=== PATIENT | male | born 1940 | race Two or more races ===

== ENCOUNTER 2018-05-13 19:18 | Inpatient (IN) | payer MEDICARE ==
[~2018-05-13] VITALS: Ht 175.3 cm; Wt 77.6 kg
[2018-05-13 10:55] VITALS: BP 128/56
--- NOTE | 2018-05-13 19:29 | NUR ---
bib lafd ra c/c aloc found on sidewalk. pt is aa/ox4 lethargic AND SLOW TO RESPOND. pt states," I haven't had any of my medicine or anything to eat or drink." COMPLAINING OF PAIN TO BUTTOCK AND HIP AREAS. POSITIVE PEDAL PULSES B/L, MOVES ALL EXTREMITIES BUT WEAK. vss, PLACED PT ON PLUGGER AND PULSE OX. no s/s of sob. pupils pinpoint. pt. denies any drug use. awaiting md eval/ orders. WILL CONTINUE TO MONITOR.
--- NOTE | 2018-05-13 19:29 | NUR ---
Note undone in EDM - 05/13/18 at 1940 by CHAYITO kellee sultana ra c[facility]/ox4 lethargic. pt states," I haven't had any of my medicine or anything to eat or drink." COMPLAINING OF PAIN TO BUTTOCK AND HIP AREAS. POSITIVE PEDAL PULSES B/L. vss. no s/s of sob. pupils pinpoint. pt. denies any drug use. awaiting eval/ orders.
--- NOTE | 2018-05-13 19:29 | NUR ---
Note undone in EDM - 05/13/18 at 1935 by CHAYITO kellee sultana ra c/c saw found on sidewalk. pt is aa/ox4 lethargic. pt states," I haven't had any of my medicine or anything to eat or drink." vss. no s/s of sob. pt denies any pain. pupils pinpoint. pt. denies any drug use. awaiting md eval/ orders.
[2018-05-13] MEDS ORDERED: LIDOCAINE 2% JEL UROJET 10 ML MM ONE ×2 (19:44→20:00)
--- NOTE | 2018-05-13 19:45 | NUR ---
LAB AT BEDSIDE FOR BLOOD DRAW.
--- NOTE | 2018-05-13 19:45 | NUR ---
EKG AT BEDSIDE
[2018-05-13] MEDS ORDERED: PANT40TA2 PO (19:55)
[2018-05-13] MEDS ORDERED: CITA20TA19 PO (19:55)
[2018-05-13] MEDS ORDERED: TAMS0.4C34 PO (19:55)
[2018-05-13] MEDS ORDERED: IBUP-1953 PO (19:55)
[2018-05-13] MEDS ORDERED: ACET325C5 PO (19:55)
[2018-05-13] MEDS ORDERED: LISI2.5T2 PO (19:55)
[2018-05-13] MEDS ORDERED: TRAM50TA2 PO (19:55)
[2018-05-13] MEDS ORDERED: MULT-213 PO (19:55)
[2018-05-13] MEDS ORDERED: CLID1CAP PO (19:55)
[2018-05-13] MEDS ORDERED: SENN176S PO (19:55)
[2018-05-13 19:57] LABS: BASOPHILS % (AUTO) 0.5 % (0.0-2.0); EOSINOPHILS % (AUTO) 2.2 % (0.0-6.0); HEMATOCRIT 29 % (39-51); HEMOGLOBIN 10.1 g/dL (13.5-17.5); LYMPHOCYTES # (AUTO) 1.1 /CMM (0.8-4.8); LYMPHOCYTES % (AUTO) 13.3 % (20.0-44.0); MEAN CORPUSCULAR HEMOGLOBIN 30 PG (26.0-33.0); MEAN CORPUSCULAR HGB CONC 35 g/dl (31.0-36.0); MEAN CORPUSCULAR VOLUME 88 fL (80-96); MONOCYTES # (AUTO) 0.6 /CMM (0.1-1.30); MONOCYTES % (AUTO) 6.9 % (2.0-12.0); NEUTROPHILS # (AUTO) 6.6 /CMM (1.8-8.9); NEUTROPHILS % (AUTO) 77.1 % (43.0-81.0); PLATELET COUNT (AUTO) 207 /CMM (150-450); RDW COEFFICIENT OF VARIATION 14.7 (11.5-15.0); RED BLOOD CELL COUNT(AUTO) 3.33 MIL/uL (4.5-6.0); WHITE BLOOD COUNT (AUTO) 8.5 K/uL (4.3-11.0)
[2018-05-13] MEDS ORDERED: CETI-102 PO (19:58)
[2018-05-13] MEDS ORDERED: CARV12.52 PO (19:58)
[2018-05-13] MEDS ORDERED: IV NS 0.9% 500 ML BAG IV ONE (20:00)
[2018-05-13 20:07] LABS: CALCIUM, SERUM 9.8 mg/dL (8.5-10.1); CARBON DIOXIDE 26 mmol/L (21-32); CHLORIDE 100 mmol/L (98-107); CREATININE 2.4 mg/dL (0.6-1.3); GLUCOSE 106 mg/dL (74-106); POTASSIUM 4.2 mmol/L (3.5-5.1); SODIUM SERUM 134 mmol/L (136-145); UREA NITROGEN, BLOOD 36 mg/dL (7-18)
[2018-05-13 20:12] LABS: ALANINE AMINOTRANSFERASE 21 U/L (12-78); ALBUMIN 3.6 g/dL (3.4-5.0); ALCOHOL, BLOOD < 3 mg/dL (0-0); ALKALINE PHOSPHATASE 72 U/L (46-116); ASPARTATE AMINOTRANSFERASE 16 U/L (15-37); BILIRUBIN,DIRECT 0.1 mg/dL (0.0-0.2); BILIRUBIN,TOTAL 0.2 mg/dL (0.2-1.0); TOTAL PROTEIN, SERUM 7.4 g/dL (6.4-8.2)
[2018-05-13 20:15] LABS: TROPONIN I < 0.017 ng/mL (0.00-0.056)
[2018-05-13 20:18] LABS: SERUM AMMONIA 10 umol/L (11-32)
[2018-05-13 20:20] LABS: ACETAMINOPHEN < 2 ug/ml (10-30); SALICYLATE < 2.8 mg/dL (2.8-20.0)
--- NOTE | 2018-05-13 20:26 | NUR ---
pt transported to radiology for ct.
[2018-05-13 20:29] LABS: THYROID STIMULATING HORMONE 1.125 uIU/mL (0.358-3.74)
[2018-05-13] MEDS ORDERED: IV NS 0.9% 1,000 ML BAG IV ONE (20:30)
[2018-05-13 20:39] LABS: INR 0.9 (0.85-1.15)
--- NOTE | 2018-05-13 21:45 | NUR ---
PT ABLE TO VERBALIZE NEEDS. REQUESTED A BLANKET AND PILLOW. STILL UNABLE TO RECALL FALLING EARLIER.
[2018-05-13 22:27] LABS: APPEARANCE,URINE CLEAR (CLEAR); BILIRUBIN,URINE NEGATIVE (NEGATIVE); BLOOD, URINE 1+ Ery/uL (NEGATIVE); COLOR,URINE YELLOW (YELLOW); KETONES,URINE TRACE (NEGATIVE); LEUKOCYTE ESTERASE ,URINE NEGATIVE (NEGATIVE); NITRITE, URINE NEGATIVE (NEGATIVE); PH,URINE 5.5 (5.0-8.0); PROTEIN,URINE TRACE mg/dl (NEGATIVE); UGLUCOSE NEGATIVE (NEGATIVE); UROBILINOGEN,URINE 0.2 EU/dL (0.2)
--- NOTE | 2018-05-13 22:28 | NUR ---
REPORT CALLED TO M/S REBECCA JACKSON. PT WAS SEEN AND EVALUATED BY DR. SNEHA CORBIN.
[2018-05-13 22:41] LABS: BACTERIA,URINE Few /HPF (None Seen); RBC,URINE 21-50 /HPF (0-2)
[2018-05-13 22:42] LABS: SQUAMOUS EPITHELIAL CELL,UR Few /HPF (None Seen)
[2018-05-13 22:55] VITALS: BP 128/56
--- NOTE | 2018-05-13 22:55 | NUR ---
RN MS ADMITTING NOTES RECEIVED PATIENT VIA GURNEY, AWAKE ALERT AND ORIENTED TO X2, NOTED FORGETFUL , ABLE TO FOLLOW SIMPLE COMMANDS AND ANSWER SIMPLE QUESTIONS, RESPIRATIONS EVEN AND UNLABORED WITH EQUAL RISE AND FALL OF CHEST, ON O2 2 LITERS VIA NC O2 SAT AT 92%, DENIES ANY PAIN OR DISCOMFORT AT THIS TIME, BODY ASSESSMENT DONE, NOTED WITH BILATERAL KNEE SKIN TEARS APPEARING SCABS, BLE SKIN DRYNESS, BUE SCATTERED DISCOLORATIONS, AND LEFT FA SCAB, SACRAL ASSESSED NOTED INTACT NO REDNESS. PATIENT ABLE TO SELF REPOSITION SELF WHILE IN BED. IV SITE TO RIGHT HAND #20g INTACT AND PATENT, NO REDNESS , NO INFILTRATION PRESENT, IV SITE TO RIGHT FA #20g INTACT AND PATENT NO REDNESS, NO INFILTRATION PRESENT, BELONGINGS LIST DONE, PLACED 2 LIGHTERS AND METAL NAIL CLIPPER WITH NAME LABEL AT STATIONS CIGARETTE DRAWER AND ONE INHALER FOR PHARM TO FORENSIC CHEMIST WITH RECEIPT IN CHART, ORIENTED TO STAFF AND CALL LIGHT, CALL LIGHT KEPT WITHIN REACH, SAFETY PRECAUTIONS RENDERED, LOW BED, BED LOCKED, SIDERAILS X 3 UP , BED ALARM ON, ALL NEEDS ATTENDED AT THIS TIME, PATIENT REMAINS COMFORTABLE , MD DR. HOOVER AWARE OF ADMISSION AWAITING ORDERS. WILL CONTINUE TO MONITOR.
[2018-05-13] MEDS ORDERED: Z GUARD REMEDY 2 OZ OINT TP PRN (23:00)
[2018-05-13] MEDS ORDERED: MAGNESIUM HYDROXIDE 30 ML UDC PO PRN (23:00)
[2018-05-13] MEDS ORDERED: MAG HYDROX/AL HYDROX/SIMETH 30 ML UDC PO PRN (23:00)
[2018-05-13] MEDS ORDERED: ONDANSETRON HCL/PF 4 MG/2 ML VIAL IVP PRN (23:00)
[2018-05-13] MEDS ORDERED: ZOLPIDEM TARTRATE 5 MG TABLET PO PRN (23:00)
[2018-05-13] MEDS: IV NS 0.9% 1,000 ML IV PRN (23:18)
--- NOTE | 2018-05-14 06:27 | NUR ---
RN MS CLOSING NOTES PATIENT REMAINS IN BED, SLEEPING BUT EASILY AROUSABLE , ALERT AND ORIENTED X 2-3 NOTED FORGETFUL AT TIMES WITH SLOW RESPONSE. RESPIRATIONS EVEN AND UNLABORED WITH EQUAL RISE AND FALL OF CHEST, ON 02 2L VIA NC. DENIES ANY PAIN OR DISCOMFORT AT SITE, IV SITE TO RIGHT HAND #20g SL AND RIGHT FA #20g INTACT AND PATENT , NO REDNESS, NO INFILTRATION PRESENT, IVF RUNNING ORDERED. URINAL OFFERED AND AT BEDSIDE, SAFETY PRECAUTIONS IN PLACE, CALL LIGHT KEPT WITHIN REACH, BED ALARM ON , LOW BED AND LOCKED, ALL NEEDS ATTENDED WILL CONTINUE TO MONITOR AND ENDORSE TO NEXT SHIFT.
--- NOTE | 2018-05-14 07:05 | NUR ---
MS RN NOTES PATIENT IN BED EYES CLOSED, AROUSABLE , RESPOND TO VERBAL AND TACTILE STIMULI. NO ACUTE DISTRESS NOTED. BREATHING UNLABORED. NO SOB NOTED. DENIED ANY PAIN. IV ACCESS PATENT AND INTACT, NO REDNESS OR SWELLING NOTED. SAFETY MEASURES IN PLACE. CALL LIGHT WITHIN REACH. WILL CONTINUE TO MONITOR ACCORDINGLY.
[2018-05-14 07:14] LABS: BASOPHILS % (AUTO) 0.5 % (0.0-2.0); EOSINOPHILS % (AUTO) 4.2 % (0.0-6.0); HEMATOCRIT 31 % (39-51); HEMOGLOBIN 10.4 g/dL (13.5-17.5); LYMPHOCYTES # (AUTO) 1.8 /CMM (0.8-4.8); LYMPHOCYTES % (AUTO) 28.8 % (20.0-44.0); MEAN CORPUSCULAR HEMOGLOBIN 31 PG (26.0-33.0); MEAN CORPUSCULAR HGB CONC 34 g/dl (31.0-36.0); MEAN CORPUSCULAR VOLUME 91 fL (80-96); MONOCYTES # (AUTO) 0.7 /CMM (0.1-1.30); MONOCYTES % (AUTO) 10.4 % (2.0-12.0); NEUTROPHILS # (AUTO) 3.6 /CMM (1.8-8.9); NEUTROPHILS % (AUTO) 56.1 % (43.0-81.0); PLATELET COUNT (AUTO) 209 /CMM (150-450); RDW COEFFICIENT OF VARIATION 15.7 (11.5-15.0); RED BLOOD CELL COUNT(AUTO) 3.41 MIL/uL (4.5-6.0); WHITE BLOOD COUNT (AUTO) 6.3 K/uL (4.3-11.0)
[2018-05-14 07:22] LABS: CALCIUM, SERUM 9.1 mg/dL (8.5-10.1); CARBON DIOXIDE 28 mmol/L (21-32); CHLORIDE 105 mmol/L (98-107); CREATININE 1.9 mg/dL (0.6-1.3); GLUCOSE 86 mg/dL (74-106); PHOSPHORUS 4.6 mg/dL (2.5-4.9); POTASSIUM 4.2 mmol/L (3.5-5.1); SODIUM SERUM 140 mmol/L (136-145); UREA NITROGEN, BLOOD 29 mg/dL (7-18)
[2018-05-14 07:35] LABS: CHOLESTEROL 188 mg/dL (<200); HDL CHOLESTEROL 74 mg/dL (40-60); LDL 99 mg/dL (0-99); THYROID STIMULATING HORMONE 0.848 uIU/mL (0.358-3.74); TRIGLYCERIDES 81 mg/dL (30-150)
[2018-05-14 07:37] LABS: IRON, SERUM 53 ug/dl (50-175); TOTAL IRON BINDING CAPACITY 328 ug/dl (250-450)
[2018-05-14] MEDS: TAMSULOSIN 0.4 MG CAP.SR.24H PO SCH (08:30)
[2018-05-14] MEDS: CARVEDILOL 12.5 MG TABLET PO SCH ×2 (08:31→16:57)
[2018-05-14 08:53] VITALS: BP 134/72
--- NOTE | 2018-05-14 10:22 | NUR ---
WOUND CARE CONSULT: PT NOT SEEN FOR SKIN ASSESSMENT YET DUE TO PT HAVING PROCEDURE AT THIS TIME. SPOKE WITH NURSING STAFF REGARDING SKIN PROTECTION. CURRENT DIXIE SCORE IS 15. PT IS MOSTLY CONTINENT PER NURSING STAFF. WILL SEE PRN. IN AGREEMENT WITH PLAN OF CARE.
[2018-05-14] MEDS: IV NS 0.9% 1,000 ML IV PRN (12:59)
--- NOTE | 2018-05-14 13:40 | NUR ---
MS RN NOTES SEEN AND EVALUATED BY COLETTE JAY WITH NEW ORDERS MADE, NOTED AND CARRIED OUT.
[2018-05-14 16:00] VITALS: BP 126/68
--- NOTE | 2018-05-14 18:34 | NUR ---
MS RN NOTES PATIENT IN BED EYES CLOSED, AROUSABLE , RESPOND TO VERBAL AND TACTILE STIMULI, VERBALLY RESPONSIVE. NO ACUTE DISTRESS NOTED, BREATHING UNLABORED, NO SOB NOTED. DENIED ANY PAIN, NO FACIAL GRIMACING NOTED. IV ACCESS PATENT AND INTACT, NO REDNESS OR SWELLING NOTED. DUE MEDICATIONS GIVEN, NO ASE NOTED. NEEDS ATTENDED AND ANTICIPATED. HOB ELEVATED. SAFETY MEASURES IN PLACE. CALL LIGHT WITHIN REACH. WILL CONTINUE TO MONITOR ACCORDINGLY. WILL ENDORSE TO NIGHT NURSE FOR CONTINUITY OF CARE.
[2018-05-14 20:00] VITALS: BP 147/66
--- NOTE | 2018-05-14 20:14 | NUR ---
MS/RN PATIENT IS AWAKE AT THIS TIME, WAS SLEEPING EARLIER DURING MY INITIAL ROUND, PATIENT IS AWAKE, ALERT, ORIENTED TO TO NAME, NO C/O PAIN, NO DISTRESS NOTED, CALL LIGHT IN REACH. FALL PRECAUTION, WILL MONITOR.
[2018-05-14] MEDS: CITALOPRAM HYDROBROMIDE 20 MG TABLET PO SCH (22:06)
--- NOTE | 2018-05-14 23:15 | NUR ---
MS/RN PATIENT IS SLEEPING AT THIS TIME, AROUSABLE, APPEAR COMFORTABLE, NO SIGNS OF DISTRESS NOTED, CALL LIGHT IN REACH, WILL CONTINUE TO MONITOR.
[2018-05-15] MEDS: IV NS 0.9% 1,000 ML IV PRN ×2 (02:49→16:18)
--- NOTE | 2018-05-15 06:18 | NUR ---
MS/RN PATIENT IS SLEEPING, EASILY AROUSABLE APPEAR COMFORTABLE, NO SIGNS OF DISTRESS NOTED, CALL LIGHT IN REACH. ALL NEEDS ATTENDED AT THIS TIME. WILL CONTINUE TO MONITOR.
--- NOTE | 2018-05-15 06:20 | NUR ---
MS/RN PATIENT REFUSED MORNING CARE, BED CHANGE PER LOAN REVIEW OFFICER.
--- NOTE | 2018-05-15 07:32 | NUR ---
MS RN NOTES PATIENT RESTING INSIDE ROOM. AWAKE, ALERT AND ORIENTED TO SELF. VERBALLY RESPONSIVE AND RESPONDS TO VERBAL AND TACTILE STIMULI. BREATHING EVEN AND UNLABORED. NO SOB OR ACUTE DISTRESS NOTED. PATIENT DENIES ANY PAIN OR DISCOMFORT. IV SITE INTACT AND PATENT. SAFETY PRECAUTIONS IN PLACE. BED ALARM ON. BILATERAL SIDE RAILS UP AND LOCKED. WILL CONTINUE TO MONITOR. BED LOCKED AND IN LOW POSITION. CALL LIGHT WITHIN EASY REACH
[2018-05-15 07:38] LABS: CALCIUM, SERUM 8.8 mg/dL (8.5-10.1); CARBON DIOXIDE 25 mmol/L (21-32); CHLORIDE 104 mmol/L (98-107); CREATININE 1.5 mg/dL (0.6-1.3); GLUCOSE 88 mg/dL (74-106); POTASSIUM 4.3 mmol/L (3.5-5.1); SODIUM SERUM 139 mmol/L (136-145); UREA NITROGEN, BLOOD 20 mg/dL (7-18)
[2018-05-15 08:00] VITALS: BP 160/80
[2018-05-15] MEDS: TAMSULOSIN 0.4 MG CAP.SR.24H PO SCH (08:18)
[2018-05-15] MEDS: CARVEDILOL 12.5 MG TABLET PO SCH ×2 (08:19→16:17)
[2018-05-15] MEDS: ACETAMINOPHEN 325 MG TABLET PO PRN (14:42)
[2018-05-15 16:00] VITALS: BP 158/74
[2018-05-15] MEDS: HYDROCODONE/APAP 5/325MG 1 EACH TABLET PO PRN (16:17)
--- NOTE | 2018-05-15 18:28 | NUR ---
MS RN NOTES PATIENT RESTING INSIDE ROOM. AWAKE, ALERT AND ORIENTED X 2. VERBALLY RESPONSIVE AND RESPONDS TO VERBAL AND TACTILE STIMULI. BREATHING EVEN AND UNLABORED. NO SOB OR ACUTE DISTRESS NOTED. NO CHANGES IN LOC NOTED AT THIS TIME. PATIENT CALM AND RELAXED. IV SITE INTACT AND PATENT. NO SWELLING NOTED ON SITE. WILL ENDORSE TO INCOMING SHIFT FOR SAHTYA. BED LOCKED AND IN LOW POSITION. BILATERAL UPPER SIDE RAILS UP AND LOCKED. CALL LIGHT WITHIN EASY REACH
--- NOTE | 2018-05-15 19:30 | NUR ---
RM INITIAL NOTES: Received patient on bed, asleep, easily arousable. Breathing even and unlabored. No SOB or no acute distress noted. Peripheral IV on RFA g#20 infusing NS @ 75mL/hr. Call levin within reach. Bed in low locked position. Patient stable as endorsed by the morning shift RN.
[2018-05-15 20:00] VITALS: BP 147/74
[2018-05-15] MEDS: CITALOPRAM HYDROBROMIDE 20 MG TABLET PO SCH (21:34)
[2018-05-16] MEDS: IV NS 0.9% 1,000 ML IV PRN (05:09)
--- NOTE | 2018-05-16 06:56 | NUR ---
MS RN CLOSING NOTES PATIENT SLEEPING BUT EASILY AROUSABLE. AWAKE, ALERT AND ORIENTED TO SELF. VERBALLY RESPONSIVE. BREATHING EVEN AND UNLABORED. NO SOB OR ACUTE DISTRESS NOTED. PATIENT DENIES ANY PAIN OR DISCOMFORT. IV SITE INTACT AND PATENT. ALL NEEDS ATTENDED TO. ALL DUE MEDICATIONS GIVEN ORDERED. SAFETY PRECAUTIONS IN PLACE. BED ALARM ON. BILATERAL SIDE RAILS UP AND LOCKED. BED LOCKED AND IN LOW POSITION. CALL LIGHT WITHIN EASY REACH. WILL ENDORSE SATHYA TO MORNING SHIFT RN.
--- NOTE | 2018-05-16 07:10 | NUR ---
RN OPENING NOTES RECEIVED PT. IN BED AWAKE, A&OX3. BREATHING UNLABORED, AND EVENLY ON ROOM AIR. NO S/S OF ACUTE DISTRESS. PT.C/O HEADACHE, MEDICATION WAS OFFERED. IV FLUIDS RUNNING AT 75 ML/HR. BED IS IN LOWEST, AND LOCKED POSITION. 2 SIDE RAILS UP, AND INSTRUCTED PT.TO USE CALL LIGHT WITHIN REACH FOR ASSISTANCE. ALL NEEDS MET. WILL CONTINUE TO ASSESS AND MONITOR.
[2018-05-16 08:00] VITALS: BP 143/77
[2018-05-16] MEDS: TAMSULOSIN 0.4 MG CAP.SR.24H PO SCH (08:30)
[2018-05-16] MEDS: CARVEDILOL 12.5 MG TABLET PO SCH ×2 (08:31→16:40)
[2018-05-16] MEDS: ACETAMINOPHEN 325 MG TABLET PO PRN (08:31)
[2018-05-16] MEDS ORDERED: ENOXAPARIN SODIUM 40 MG/0.4 ML DISP.SYRIN SQ ONE (10:30)
[2018-05-16] MEDS: NEOMY SULF/BACITRAC ZN/POLY 15 GM TUBE TP SCH (15:30)
[2018-05-16] MEDS: HYDROCODONE/APAP 5/325MG 1 EACH TABLET PO PRN ×2 (15:36→23:50)
[2018-05-16 16:14] VITALS: BP 139/83
--- NOTE | 2018-05-16 18:10 | NUR ---
NEOSPORIN OINTMENT UNAVAILABLE IN MEDICATION ROOM. WILL NOTIFY PHARMACY ABOUT ORDER.
--- NOTE | 2018-05-16 18:55 | NUR ---
RN CLOSING NOTES PT. IS IN BED AWAKE, A&OX3. BREATHING UNLABORED, AND EVENLY ON ROOM AIR. NO S/S OF ACUTE DISTRESS. IV FLUIDS RUNNING AT 75 ML/HR. BED IS IN LOWEST, AND LOCKED POSITION. 2 SIDE RAILS UP, AND INSTRUCTED PT.TO USE CALL LIGHT WITHIN REACH FOR ASSISTANCE. ALL NEEDS MET. WILL ENDORSE REPORT TO NURSE.
--- NOTE | 2018-05-16 19:25 | NUR ---
RN INITIAL NOTES: Received patient on bed, alert, oriented x 1-2. Breathing even and unlabored. No SOB or no acute distress noted. Peripheral IV on RFA g#20 infusing NS @ 75mL/hr. Call levin within reach. Bed in low locked position. Patient stable as endorsed by the morning shift RN.
[2018-05-16 20:05] VITALS: BP 172/76
[2018-05-16] MEDS: CITALOPRAM HYDROBROMIDE 20 MG TABLET PO SCH (21:43)
--- NOTE | 2018-05-16 23:50 | NUR ---
RN NOTES: Patient woke up complaining of a splitting headache. Per patient," it's so painful that it woke me up". Offered tylenol but stated that it doesn't work. Requested for norco, given as ordered.
[2018-05-17] VITALS: BP 157/87
[2018-05-17 00:10] VITALS: BP 157/87
[2018-05-17] MEDS: IV NS 0.9% 1,000 ML IV PRN (01:36)
--- NOTE | 2018-05-17 06:04 | NUR ---
RN CLOSING NOTES: Patient in bed, alert, riented x 2. Breathing even and unlabored. No SOB or no acute distress noted. Peripheral IV on RFA g#20 infusing NS @ 75mL/hr. All needs attended to. All due medications given as ordered. Call levin within reach. Bed in low locked position. Will endorse SATHYA to morning shift RN
--- NOTE | 2018-05-17 07:10 | NUR ---
RN OPENING NOTES RECEIVED PT. IN BED SLEEPING. BREATHING UNLABORED, AND EVENLY ON ROOM AIR. NO S/S OF ACUTE DISTRESS. PT.C/O HEADACHE PER NURSE REPORT, AND RECEIVED PAIN MEDICATION. IV FLUIDS RUNNING AT 75 ML/HR. BED IS IN LOWEST, AND LOCKED POSITION. 2 SIDE RAILS UP, AND CALL LIGHT WITHIN REACH. ALL NEEDS MET. WILL CONTINUE TO ASSESS AND MONITOR.
[2018-05-17 08:00] VITALS: BP 153/77
[2018-05-17 08:01] LABS: BASOPHILS # (AUTO) 0.1 /CMM (0.0-0.2); BASOPHILS % (AUTO) 0.8 % (0.0-2.0); EOSINOPHILS % (AUTO) 3.8 % (0.0-6.0); HEMATOCRIT 30 % (39-51); HEMOGLOBIN 9.7 g/dL (13.5-17.5); LYMPHOCYTES # (AUTO) 1.5 /CMM (0.8-4.8); LYMPHOCYTES % (AUTO) 21.9 % (20.0-44.0); MEAN CORPUSCULAR HEMOGLOBIN 29 PG (26.0-33.0); MEAN CORPUSCULAR HGB CONC 33 g/dl (31.0-36.0); MEAN CORPUSCULAR VOLUME 90 fL (80-96); MONOCYTES # (AUTO) 0.7 /CMM (0.1-1.30); MONOCYTES % (AUTO) 10.6 % (2.0-12.0); NEUTROPHILS # (AUTO) 4.2 /CMM (1.8-8.9); NEUTROPHILS % (AUTO) 62.9 % (43.0-81.0); PLATELET COUNT (AUTO) 192 /CMM (150-450); RDW COEFFICIENT OF VARIATION 15.1 (11.5-15.0); WHITE BLOOD COUNT (AUTO) 6.7 K/uL (4.3-11.0)
[2018-05-17 08:06] LABS: CALCIUM, SERUM 8.8 mg/dL (8.5-10.1); CARBON DIOXIDE 26 mmol/L (21-32); CHLORIDE 107 mmol/L (98-107); CREATININE 1.3 mg/dL (0.6-1.3); GLUCOSE 87 mg/dL (74-106); POTASSIUM 4.2 mmol/L (3.5-5.1); SODIUM SERUM 142 mmol/L (136-145); UREA NITROGEN, BLOOD 14 mg/dL (7-18)
[2018-05-17] MEDS: TAMSULOSIN 0.4 MG CAP.SR.24H PO SCH (08:12)
[2018-05-17] MEDS: CARVEDILOL 12.5 MG TABLET PO SCH ×2 (08:12→16:03)
[2018-05-17] MEDS: NEOMY SULF/BACITRAC ZN/POLY 15 GM TUBE TP SCH (08:13)
--- NOTE | 2018-05-17 09:43 | NUR ---
WOUND CARE PERFORMED PER ORDERS. PT. TOLERATED PROCEDURE WELL.
[2018-05-17 16:00] VITALS: BP 190/110
[2018-05-17] MEDS: HYDROCODONE/APAP 5/325MG 1 EACH TABLET PO PRN ×2 (16:03→21:11)
--- NOTE | 2018-05-17 16:45 | NUR ---
MACHINE ICER PT. WAS GIVEN DISCHARGE INSTRUCTIONS, AND PT. VERBALIZED UNDERSTANDING. BELONGINGS LIST CHECKED, AND SIGNED. DISCHARGE PAPERS WERE SIGNED. INHALER WAS RETUNED, AND 2 LIGHTERSMaximino ALANIZ FROM [facility] WAS GIVEN REPORT VIA PHONE. AMBULANCE CREW WAS GIVEN REPORT. PT.'S BP WAS ELEVATED, BLOOD PRESSURE, AND PAIN MEDICATIONS WERE GIVEN. PT.'S BLOOD PRESSURE WAS SBP >190,DBP >100. AFTER 30 MINUTES BP REMAINED ELEVATED 196/90. AMBULANCE CREW COULD NOT ACCEPT PT. WITH HIGH BLOOD PRESSURE, AND PROVIDED A NUMBER TO CALL BACK WHEN PT.'S BP STABILIZED. PT. STAYED IN ROOM 328 BED1.
--- NOTE | 2018-05-17 17:00 | NUR ---
RN NOTES DR. MARES WAS NOTIFIED ABOUT PT.'S BP ON DISCHARGE, AND GAVE NEW ONE TIME ORDERS GIVEN FOR LISINOPRIL 2.5 MG PO, AND HYDRALAZINE 25 MG PO FOR BP BEFORE AMBULANCE PAINTING MACHINE OPERATOR, IF LISINOPRIL DOES NOT DECREASE BLOOD PRESSURE.
[2018-05-17] MEDS ORDERED: hydrALAZINE HCL 25 MG TABLET PO ONE (18:00)
[2018-05-17] MEDS ORDERED: LISINOPRIL (5MG) 5 MG TABLET PO ONE (18:00)
--- NOTE | 2018-05-17 19:30 | NUR ---
MS RN NOTES: WAS ENDORSED TO HAVE HYDRALAZINE 25MG PO GIVEN FOR ELEVATED BP SINCE PT IS TO GO FOR DISCHARGE.
--- NOTE | 2018-05-17 19:45 | NUR ---
RN CLOSING NOTES PT. IS IN BED A&OX3. BREATHING UNLABORED, AND EVENLY ON ROOM AIR. NO S/S OF ACUTE DISTRESS, NO SOB. DVT PUMPS ARE ON. BED IS IN LOWEST, AND LOCKED POSITION. 2 SIDE RAILS UP, AND CALL LIGHT WITHIN REACH. ALL NEEDS MET. WILL ENDORSE REPORT TO NURSE, AND THE DISCHARGE PLANS.
[2018-05-17 20:00] VITALS: BP 147/73
[2018-05-17 20:01] VITALS: BP 147/73
--- NOTE | 2018-05-17 20:04 | NUR ---
MS RN NOTES: [facility]ED [facility] . [facility] TRIP # [facility] [id number].
--- NOTE | 2018-05-17 20:09 | NUR ---
MS RN NOTES: [phone] PAUL AND PT IS TO GO TO ROOM 24-B.
--- NOTE | 2018-05-17 20:50 | NUR ---
MS RN NOTES: RECEIVED PT IN BED AND IS A/OX2-3. PT IS ON ROOM AIR. NO SOB NOTED. NO S/S OF DISTRESS. PT AWAITING FOR DISCHARGE. PT HAS IV INTACT AND IS PATENT. PT BEING INFUSED WITH IV NS AT 75ML/HR. CALL LIGHT WITHIN PT'S REACH. BED KEPT IN LOW, LOCKED POSITION, AND SIDE RAILS X 2UP. BED ALARM ACTIVATED. WILL CONTINUE TO MONITOR PT.
--- NOTE | 2018-05-17 21:11 | NUR ---
MS RN NOTES: PT REQUESTED FOR PAIN MEDICATION BEFORE GROUP WORK PROGRAM AIDE TAKE HIM. PT WAS ADMINISTERED NORCO 5 PO FOR 7/10 GENERALIZED PAIN. ENDORSED TO GROUP WORK PROGRAM AIDE.
--- NOTE | 2018-05-17 21:21 | NUR ---
MS RN NOTES: 3 DIAMOND PICKER AT BEDSIDE. PT TO GO FOR DISCHARGE. IV REMOVED ON R FOREARM.
--- NOTE | 2018-05-17 21:22 | NUR ---
MS RN NOTES: PT LEFT IN STABLE CONDITION. ARM BAND REMOVED.
== END 2018-05-17 21:20 | DRG 682 ==
LOC: ER 19:20 → MED 22:29
DX: N17.0 Acute kidney failure with tubular necrosis (principal); G92 Toxic encephalopathy; E87.1 Hypo-osmolality and hyponatremia; I12.9 Hypertensive chronic kidney disease with stage 1 through stage 4 chronic kidney disease, or unspecified chronic kidney disease; N18.9 Chronic kidney disease, unspecified; D64.9 Anemia, unspecified; F03.90 Unspecified dementia, unspecified severity, without behavioral disturbance, psychotic disturbance, mood disturbance, and anxiety; K59.00 Constipation, unspecified; R41.89 Other symptoms and signs involving cognitive functions and awareness; M48.02 Spinal stenosis, cervical region; E86.9 Volume depletion, unspecified; E86.1 Hypovolemia; N28.1 Cyst of kidney, acquired; S80.211A Abrasion, right knee, initial encounter; X58.XXXA Exposure to other specified factors, initial encounter; Y92.89 Other specified places as the place of occurrence of the external cause; L89.899 Pressure ulcer of other site, unspecified stage
CPT/HCPCS: 36415; 70450-TC; 71045-TC; 72125-TC; 72170-TC; 76770-TC; 80048-TC; 80061-TC; 80076-TC; 80305; 81000-TC; 82140-TC; 82962-TC; 83540-TC; 83735-TC; 84100-TC; 84443-TC; 84484-TC; 85025-TC; 85730-TC; 87081-TC; 97110-TC; 97116-TC; 97530-TC; A4606; A6402; G0480; J3490; J7030; J7040; Z7610

== ENCOUNTER 2019-04-17 20:32 | Emergency (ER) | payer MEDICARE, OTHER ==
[~2019-04-17] VITALS: Ht 175.3 cm; Wt 81.6 kg
[~2019-04-17 20:32] MED LIST: ACET325C5 PO; CARV12.52 PO; CETI-102 PO; CITA20TA19 PO; CLID1CAP PO; IBUP-1953 PO; LISI2.5T2 PO; MULT-213 PO; PANT40TA2 PO; SENN176S PO; TAMS0.4C34 PO; TRAM50TA2 PO
--- NOTE | 2019-04-17 20:45 | NUR ---
MARLEN FROM [facility]. AAOX4. PT PRESENTED VOMITING. NO RESP DISTRESS NOTED. C/O VOMITING SINCE LUNCH TIME. PT REPORTS VOMITING IS NON STOP WITH FLUID AND CANT KEEP FLUID AND FOOD. LAST BM THIS AM. TO ER BED 13. MD AT BEDSIDE.
[2019-04-17] MEDS ORDERED: ONDANSETRON HCL/PF 4 MG/2 ML VIAL ONE ×2 (20:46→21:43)
--- NOTE | 2019-04-17 20:55 | NUR ---
IV STARTED ON R AC 18G. BLOOD DRAWN AND GIVEN FOOD SERVICE REPRESENTATIVE AT BEDSIDE
[2019-04-17 20:58] LABS: BASOPHILS % (AUTO) 0.4 % (0.0-2.0); EOSINOPHILS % (AUTO) 0.2 % (0.0-6.0); HEMATOCRIT 38 % (39-51); HEMOGLOBIN 12.4 g/dL (13.5-17.5); LYMPHOCYTES % (AUTO) 12.2 % (20.0-44.0); MEAN CORPUSCULAR HGB CONC 33 g/dl (31.0-36.0); MEAN CORPUSCULAR VOLUME 91 fL (80-96); MONOCYTES # (AUTO) 0.6 /CMM (0.1-1.30); MONOCYTES % (AUTO) 6.9 % (2.0-12.0); NEUTROPHILS # (AUTO) 6.8 /CMM (1.8-8.9); NEUTROPHILS % (AUTO) 80.3 % (43.0-81.0); PLATELET COUNT (AUTO) 254 /CMM (150-450); RED BLOOD CELL COUNT(AUTO) 4.14 MIL/uL (4.5-6.0); WHITE BLOOD COUNT (AUTO) 8.5 K/uL (4.3-11.0)
[2019-04-17] MEDS ORDERED: ONDANSETRON HCL/PF 4 MG/2 ML VIAL IVP ONE (21:00)
[2019-04-17] MEDS ORDERED: IV NS 0.9% 1,000 ML BAG IV ONE ×2 (21:00→21:30)
--- NOTE | 2019-04-17 21:03 | NUR ---
XRAY AT BEDSIDE
[2019-04-17 21:04] LABS: CALCIUM, SERUM 9.6 mg/dL (8.5-10.1); CARBON DIOXIDE 25 mmol/L (21-32); CHLORIDE 104 mmol/L (98-107); CREATININE 1.8 mg/dL (0.6-1.3); GLUCOSE 116 mg/dL (74-106); POTASSIUM 4.6 mmol/L (3.5-5.1); SODIUM SERUM 141 mmol/L (136-145); UREA NITROGEN, BLOOD 31 mg/dL (7-18)
[2019-04-17 21:10] LABS: ALANINE AMINOTRANSFERASE 22 U/L (12-78); ALBUMIN 4.4 g/dL (3.4-5.0); ALKALINE PHOSPHATASE 84 U/L (46-116); ASPARTATE AMINOTRANSFERASE 19 U/L (15-37); BILIRUBIN,DIRECT 0.1 mg/dL (0.0-0.2); BILIRUBIN,TOTAL 0.4 mg/dL (0.2-1.0); LIPASE 63 U/L (73-393); TOTAL PROTEIN, SERUM 8.8 g/dL (6.4-8.2)
--- NOTE | 2019-04-17 21:14 | NUR ---
WHEELED TO CT ON [facility]
[2019-04-17] MEDS ORDERED: hydrALAZINE HCL IV 20 MG VIAL ONE (21:33)
--- NOTE | 2019-04-17 21:35 | NUR ---
BP NOTED AT 224/111. MD MADE AWARE AND ORDER RECEIVED TO GIVE HYDRALAZINE 10MG IV
[2019-04-17] MEDS ORDERED: hydrALAZINE HCL IV 20 MG VIAL IV ONE (22:00)
[2019-04-17] MEDS ORDERED: ONDANSETRON HCL/PF - ER 4 MG/2 ML VIAL IV ONE (22:00)
--- NOTE | 2019-04-17 22:06 | NUR ---
[facility] ETA [id number] TRIP#[id number]
--- NOTE | 2019-04-17 22:25 | NUR ---
[facility] AT BEDSIDE FR[facility] IS ST[facility] FOR TRANPOSRT. REPORT GIVEN TO [facility] STAFF. NAD NOTED UPON DISCHARGE. ACI GIVEN TO PT.
[2019-04-17] MEDS ORDERED: CLONIDINE HCL 0.1 MG TABLET ONE (22:42)
--- NOTE | 2019-04-17 22:44 | NUR ---
TRANSFER TO FACILITY ON HOLD D/T BP NOTED AT 226/124 MD MADE AWARE AND ORDER CLONIDINE 0.1MG PO X1.
[2019-04-17] MEDS ORDERED: CLONIDINE HCL 0.1 MG TABLET PO ONE (23:00)
[2019-04-18] MEDS ORDERED: CLONIDINE HCL 0.1 MG TABLET ONE (00:55)
[2019-04-18] MEDS ORDERED: CLONIDINE HCL 0.1 MG TABLET PO ONE (01:00)
[2019-04-18 01:10] VITALS: BP 152/88
--- NOTE | 2019-04-18 01:12 | NUR ---
[facility] AT [facility] FOR PT TRANSPORT TO FACILITY ON [facility]. PT IN STABLE CONDITION FOR TRANSPORT. NAD NOTED.
== END 2019-04-18 01:14 | disposition home or self-care (01) ==
LOC: ER 20:33
DX: K44.9 Diaphragmatic hernia without obstruction or gangrene (principal); R11.2 Nausea with vomiting, unspecified; E86.0 Dehydration; I12.9 Hypertensive chronic kidney disease with stage 1 through stage 4 chronic kidney disease, or unspecified chronic kidney disease; N18.9 Chronic kidney disease, unspecified; G93.40 Encephalopathy, unspecified; I25.10 Atherosclerotic heart disease of native coronary artery without angina pectoris; K21.0 Gastro-esophageal reflux disease with esophagitis; N40.0 Benign prostatic hyperplasia without lower urinary tract symptoms; F32.9 Major depressive disorder, single episode, unspecified; F10.10 Alcohol abuse, uncomplicated
CPT/HCPCS: 36415; 71045; 74176; 80048; 80076; 83690; 85025; 93005; 96361; 96374; 96375; 96376; 99284; J0360; J2405 ×2; J7030 ×2